=== PATIENT | male | born 1945 | race Caucasian/White ===

== ENCOUNTER 2017-04-02 10:40 | Outpatient (CLI) | payer MEDICARE, MEDICAID ==
[2017-04-02 11:18] LABS: Bilirubin Negative (Negative); Blood, Urine Negative (Negative); Glucose, Urine (Dipstick) Negative (Negative); Ketone, Urine Negative (Negative); Nitrite Negative (Negative); Protein, Urine (Dipstick) Negative (Neg-Trace); Urobilinogen 0.2 mg/dL (0.2-1.0)
[2017-04-02 11:44] LABS: Anion Gap 9 mmol/L (10-20); BUN (Urea Nitrogen) 16 mg/dL (8.4-25.7); Calc. Creatinine Clearance 0 mL/min (70-130); Calcium 9.1 mg/dL (7.8-10.44); Carbon Dioxide 30 mmol/L (23-31); Chloride 105 mmol/L (98-107); Estimated GFR-MDRD 77
[2017-04-02 11:52] LABS: Bacteria/HPF None Seen HPF (None Seen); Hyaline Casts/LPF NONE SEEN LPF (0-3 Hyaline); RBC/HPF None Seen HPF (0-3); Squamous Epithelial 0-3 HPF (0-3); WBC/HPF 0-3 HPF (0-3)
--- NOTE | 2017-04-02 13:10 | CT ---
CT ABDOMEN AND PELVIS WITH AND WITHOUT IV CONTRAST: HISTORY: Microhematuria. FINDINGS: Each renal collecting system, ureter, and the urinary bladder are decompressed. At the inferior pole of each kidney, there are tiny calcifications in the 1-2 mm range. Cysts arise from the cortex of each kidney. The largest is at the posterior aspect of the left kidne y, measuring up to 2.8 cm. Dystrophic calcification is apparent within the spleen. No filling defects are apparent within the urinary collecting systems on the delayed images, although there is incomplete opacification of the urinary bladder. There is prominent calcification throughout the arterial structures. Degenerative changes involve th e lumbar spine. The inferiormost images show fluid distention of the right side of the scrotum. IMPRESSION: 1. Tiny nonobstructing bilateral renal calculi. 2. Renal cysts. No solid masses are evident. 3. Atherosclerosis. 4. Large right hydrocele. POS: [facility]
== END 2017-04-02 10:41 | disposition home or self-care (01) ==
LOC: CT 10:40
PROVIDERS: ATTEND Urology
DX: R31.29 Other microscopic hematuria (principal); N20.0 Calculus of kidney; N28.1 Cyst of kidney, acquired; I70.90 Unspecified atherosclerosis; N43.3 Hydrocele, unspecified
CPT/HCPCS: 36415; 74178; 80048; 81001; 87086; 88112

== ENCOUNTER 2018-12-08 08:13 | Outpatient (CLI) | payer MEDICARE, MEDICAID ==
--- NOTE | 2018-12-08 14:06 | NM ---
NUCLEAR MEDICINE BRAIN IMAGING: HISTORY: Cervical cord compression and myelopathy. TECHNIQUE: A Shailesh scan with axial tomographic images of the brain was obtained 3 hours following intravenous admi nistration of 5 mCi Iodine 123 Ioflupane. The patient was premedicated with 130 mg of potassium iodi de 1 hour prior to the injection of the radiopharmaceutical. FINDINGS: There is loss of normal symmetric uptake in the striata bilaterally with tracer uptake greater on the left compared to the right. IMPRESSION: Parkinsonian syndrome. POS: [facility]
== END 2018-12-08 08:14 | disposition home or self-care (01) ==
LOC: NM 08:13
PROVIDERS: ATTEND Psychiatry & Neurology Neurology
DX: G95.20 Unspecified cord compression (principal); G20 Parkinson's disease
CPT/HCPCS: 78607; A9584

== ENCOUNTER 2019-06-01 09:14 | Outpatient (CLI) | payer MEDICARE, MEDICAID ==
--- NOTE | 2019-06-01 10:16 | ULT ---
ULTRASOUND RETROPERITONEUM COMPLETE: (RENAL) DATE: 06/01/2019 HISTORY: 73-year-old male with incomplete bladder emptying. FINDINGS: The right kidney measures 11 x 5.5 x 6 cm. The left kidney measures 10 x 6 x 5.5 cm. There is significant obscuring of the left kidney with very poor visualization, partly due to shadowi ng from overlying bowel gas, because patient is unable to turn body because of limited mobility. There is no hydronephrosis. 2 x 2 x 1.5 cm cyst at upper pole right kidney. 2.5 x 2.5 x 3 cm cyst at left renal mid-lower pole. No moderate sized or large solid renal lesion is identified. Cursory images of the full urinary bladder demonstrate no gross abnormality. Prevoid urinary bladder volume is 290 mL. Patient is unable to void at this time. IMPRESSION: 1) urinary retention. Patient unable to void. 2) no hydronephrosis. 3) 3 cm left renal cyst, and 2 cm right renal cyst.
== END 2019-06-01 09:15 | disposition home or self-care (01) ==
LOC: ULT 09:14
PROVIDERS: ATTEND Urology
DX: R33.9 Retention of urine, unspecified (principal); N28.1 Cyst of kidney, acquired
CPT/HCPCS: 76770

== ENCOUNTER 2022-04-08 11:25 | Inpatient (IN) | payer MEDICARE, MEDICAID ==
[~2022-04-08 11:25] MED LIST: Iopamidol-370 76% 500 ML 1 ML ONE
[2022-04-08] MEDS ORDERED: cefTRIAXone\\ROCEPHIN 2 GM VIAL ONE (11:53)
[2022-04-08 12:10] LABS: #Lymphocytes 0.6 thou/uL (1.20-3.40); #Monocytes 0.6 thou/uL (0.11-0.59); %Basophils 0.1 % (0.0-1.0); %Eosinophils 0.2 % (0.0-10.0); %Lymphocytes 4.5 % (21.0-51.0); %Monocytes 4.2 % (0.0-10.0); Hemoglobin 10.4 g/dL (14.0-18.0); Mean Corpuscular HGB CONC 34.1 g/dL (32.0-36.0); Mean Platelet Volume 7.1 fL (7.4-10.4); Platelet Count 195 10x3/uL (130-400); RBC Distribution Width 11.1 % (11.5-14.5); Red Blood Cell (RBC) Count 2.89 mill/uL (4.70-6.10); White Blood Cell (WBC) Count 13.2 10x3/uL (4.8-10.8)
[2022-04-08 12:38] LABS: Bacteria/HPF 3+ HPF (None Seen); Bilirubin Negative (Negative); Blood, Urine 1+ (Negative); Clarity Extra Turbid (Clear); Glucose, Urine (Dipstick) Normal (Negative); Ketone, Urine Negative (Negative); Leukocyte 500 Leu/uL (Negative); Nitrite Negative (Negative); Protein, Urine (Dipstick) 100 mg/dL (Neg-Trace); Specific Gravity, Urine 1.015 (1.002-1.036); Squamous Epithelial None Seen HPF (0-3); Urobilinogen Normal mg/dL (Less than 2); WBC/HPF Greater than 50 HPF (0-3)
[2022-04-08 12:38] LABS: ALT (SGPT) Less than 7 U/L (8-55); AST (SGOT) 9 U/L (5-34); Alkaline Phosphatase 46 U/L (40-110); Anion Gap 9 mmol/L (10-20); BUN (Urea Nitrogen) 26 mg/dL (8.4-25.7); Bilirubin, Total 0.3 mg/dL (0.2-1.2); Calc. Creatinine Clearance 0 mL/min (70-130); Calcium 8.2 mg/dL (7.8-10.44); Carbon Dioxide 27 mmol/L (23-31); Chloride 108 mmol/L (98-107); Estimated GFR 76; Globulin 2.7 g/dL (2.4-3.5); Glucose 108 mg/dL (83-110); Potassium 3.6 mmol/L (3.5-5.1); Protein, Total 5.7 g/dL (5.8-8.1); Sodium 140 mmol/L (136-145)
[2022-04-08 15:03] LABS: Lactic Acid 1.6 mmol/L (0.5-2.2)
[2022-04-08] MEDS ORDERED: Acetaminophen 325 MG TAB PO PRN ×2 (15:15→15:20)
[2022-04-08] MEDS ORDERED: Ondansetron PF 4 MG/2 ML Vial IVP PRN ×2 (15:15→15:20)
[2022-04-08] MEDS ORDERED: Ondansetron ODT 4 MG TAB SL PRN (15:15)
[2022-04-08] MEDS ORDERED: Ondansetron ODT 4 MG TAB PO PRN (15:20)
[2022-04-08] MEDS ORDERED: Sodium Chloride 0.9% 1,000 ML IV SCH (15:30)
[2022-04-08 17:09] VITALS: BMI 21.7
[2022-04-09 06:08] LABS: #Eosinphils 0.1 thou/uL (0.0-0.7); #Lymphocytes 1.2 thou/uL (1.20-3.40); #Monocytes 0.7 thou/uL (0.11-0.59); #Neutrophils 6.5 thou/uL (1.40-6.50); %Basophils 0.4 % (0.0-1.0); %Eosinophils 0.9 % (0.0-10.0); %Lymphocytes 14.2 % (21.0-51.0); %Neutrophils 76.5 % (42.0-75.0); Hemoglobin 10.5 g/dL (14.0-18.0); Mean Corpuscular HGB CONC 32.5 g/dL (32.0-36.0); Mean Corpuscular Hemoglobin 34.1 pg (27.0-31.0); Mean Platelet Volume 7.6 fL (7.4-10.4); Platelet Count 188 10x3/uL (130-400); Red Blood Cell (RBC) Count 3.06 mill/uL (4.70-6.10); White Blood Cell (WBC) Count 8.6 10x3/uL (4.8-10.8)
[2022-04-09 06:22] LABS: Anion Gap 11 mmol/L (10-20); BUN (Urea Nitrogen) 23 mg/dL (8.4-25.7); Calc. Creatinine Clearance 77 mL/min (70-130); Calcium 8.1 mg/dL (7.8-10.44); Carbon Dioxide 24 mmol/L (23-31); Chloride 108 mmol/L (98-107); Estimated GFR 90; Glucose 84 mg/dL (83-110); Potassium 3.5 mmol/L (3.5-5.1); Sodium 139 mmol/L (136-145)
[2022-04-09] MEDS: Enoxaparin Sodium 40 MG/0.4 ML SYRINGE SC SCH (08:08)
[2022-04-09] MEDS ORDERED: cefTRIAXone\\ROCEPHIN 2 GM in Sodium Chloride 0.9% 100 ML IVPB SCH (12:00)
[2022-04-10 06:13] LABS: #Eosinphils 0.1 thou/uL (0.0-0.7); #Lymphocytes 1.4 thou/uL (1.20-3.40); #Monocytes 0.7 thou/uL (0.11-0.59); #Neutrophils 4.6 thou/uL (1.40-6.50); %Basophils 0.4 % (0.0-1.0); %Lymphocytes 20.7 % (21.0-51.0); %Monocytes 9.6 % (0.0-10.0); %Neutrophils 67.3 % (42.0-75.0); Hemoglobin 10.9 g/dL (14.0-18.0); Mean Corpuscular HGB CONC 34.9 g/dL (32.0-36.0); Mean Corpuscular Hemoglobin 36.2 pg (27.0-31.0); Mean Platelet Volume 7.9 fL (7.4-10.4); Platelet Count 176 10x3/uL (130-400); Red Blood Cell (RBC) Count 3.01 mill/uL (4.70-6.10); White Blood Cell (WBC) Count 6.9 10x3/uL (4.8-10.8)
[2022-04-10 06:39] LABS: Anion Gap 10 mmol/L (10-20); BUN (Urea Nitrogen) 20 mg/dL (8.4-25.7); Calc. Creatinine Clearance 80 mL/min (70-130); Calcium 8.1 mg/dL (7.8-10.44); Carbon Dioxide 24 mmol/L (23-31); Chloride 109 mmol/L (98-107); Estimated GFR 92; Glucose 81 mg/dL (83-110); Potassium 3.4 mmol/L (3.5-5.1); Sodium 140 mmol/L (136-145)
[2022-04-10 08:38] VITALS: BP 167/77; TEMP 98.1
[2022-04-10] MEDS: Enoxaparin Sodium 40 MG/0.4 ML SYRINGE SC SCH (08:50)
[2022-04-10] MEDS ORDERED: Potassium Chloride 20 MEQ TAB PO SCH (09:15)
[2022-04-10] MEDS ORDERED: cefTRIAXone\\ROCEPHIN 1 GM in Sodium Chloride 0.9% 100 ML IVPB SCH (12:00)
[2022-04-11] MEDS ORDERED: FLU VACC QS2022-23(65YR UP)/PF 240 MCG/0.7 ML SYRINGE IM ONE (16:00)
== END 2022-04-10 15:09 | DRG 872 ==
LOC: ERS 11:25 → T4-B 14:57 → OBSVTOIN 04-09 10:21
PROVIDERS: ADMIT Internal Medicine; ATTEND Internal Medicine
DX: A41.4 Sepsis due to anaerobes (principal); N39.0 Urinary tract infection, site not specified; E87.20 Acidosis, unspecified; Z20.822 Contact with and (suspected) exposure to COVID-19; G20 Parkinson's disease; I13.10 Hypertensive heart and chronic kidney disease without heart failure, with stage 1 through stage 4 chronic kidney disease, or unspecified chronic kidney disease; N18.2 Chronic kidney disease, stage 2 (mild); G89.29 Other chronic pain; K21.9 Gastro-esophageal reflux disease without esophagitis; F17.210 Nicotine dependence, cigarettes, uncomplicated; D63.1 Anemia in chronic kidney disease; R33.9 Retention of urine, unspecified; B96.4 Proteus (mirabilis) (morganii) as the cause of diseases classified elsewhere; Z98.890 Other specified postprocedural states; Z79.899 Other long term (current) drug therapy
CPT/HCPCS: 36415; 51701; 71045; 71260; 80048; 80053; 81003; 81015; 82607; 83605; 85025; 87040; 87077; 87086; 87149; 87186; 93005; 94760; 96372; 96374; G0378; J0696; J1650; J3490; J7050; Q9967; U0003; U0005